=== PATIENT | female | born 1950 | race Caucasian/White ===

== ENCOUNTER 2019-07-03 11:16 | Emergency (ER) | payer SELFPAY ==
--- NOTE | 2019-07-03 11:30 | ED ---
Complex/Multi-Sys Presentation - HPI Summary HPI Summary: Pt. is a 69 y.o who presents to ER via EMS for complaints of dysuria and requesting medication refill. Pt. states she just arrived to [place] on a bus from [place]. Pt. states she is moving back to [place]. Pt. notes she has nowhere to stay in [place]. Pt. states she left her medications on the bus. Past hx of DM, obesity, HTN, and GERD. Sxs are mild in severity. No current modifying factors. - History Of Current Complaint Time Seen by Provider: 07/03/19 11:22 Hx Obtained From: Patient - Allergies/Home Medications Allergies/Adverse Reactions: Allergies Allergy/AdvReac Type Severity Reaction Status Date / Time apple Allergy Anaphylatic Verified 07/03/19 11:23 Shock aspirin Allergy Anaphylatic Verified 07/03/19 11:23 Shock soy Allergy Anaphylatic Verified 07/03/19 11:23 Shock erythromycin base AdvReac See Comment Verified 07/03/19 11:23 lactose AdvReac GI Upset Verified 07/03/19 11:23 Home Medications: Home Medications Carboxymethylcellulose Sodium [Lubricant Eye Drops] 0.5 % BOTH EYES QID PRN [History Confirmed 07/03/19] Cholecalciferol CAP/TAB(NF) [Vitamin D3 CAP/TAB (NF)] 2,000 unit PO BID [History Confirmed 07/03/19] Clotrimazole 1% TOPICAL (NF) [Lotrimin 1% TOPICAL (NF)] 1 applic TOPICAL BID [History Confirmed 07/03/19] Hydrochlorothiazide TAB* [Hydrodiuril TAB*] 25 mg PO DAILY 07/03/19 [History Confirmed 07/03/19] Methyl Salicylate/Menthol [Thera-Gesic] 1 applic TOPICAL BID 07/03/19 [History Confirmed 07/03/19] Montelukast Sodium TAB* [Singulair TAB*] 10 mg PO DAILY 07/03/19 [History Confirmed 07/03/19] Omeprazole CAP (NF) [Prilosec CAP* 20 MG] 40 mg PO DAILY 07/03/19 [History Confirmed 07/03/19] metFORMIN* [Glucophage 500 MG TAB *] 500 mg PO DAILY 07/03/19 [History Confirmed 07/03/19] PMH/Surg Hx/FS Hx/Imm Hx Previously Healthy: Yes - Family History Known Family History: Positive: Non-Contributory - Social History Occupation: Retired Lives: Alone Review of Systems - ROS Summary Review of Systems Summary: Carboxymethylcellulose Sodium [Lubricant Eye Drops] 0.5 % BOTH EYES QID PRN [History Confirmed 07/03/19] Cholecalciferol CAP/TAB(NF) [Vitamin D3 CAP/TAB (NF)] 2,000 unit PO BID [History Confirmed 07/03/19] Clotrimazole 1% TOPICAL (NF) [Lotrimin 1% TOPICAL (NF)] 1 applic TOPICAL BID [History Confirmed 07/03/19] Hydrochlorothiazide TAB* [Hydrodiuril TAB*] 25 mg PO DAILY 07/03/19 [History Confirmed 07/03/19] Hydrochlorothiazide TAB* [Hydrodiuril TAB*] 25 mg PO DAILY #14 tab 07/03/19 [Rx] Methyl Salicylate/Menthol [Thera-Gesic] 1 applic TOPICAL BID 07/03/19 [History Confirmed 07/03/19] Montelukast Sodium TAB* [Singulair 10 MG TAB*] 10 mg PO DAILY #14 tab 07/03/19 [ Rx] Montelukast Sodium TAB* [Singulair TAB*] 10 mg PO DAILY 07/03/19 [History Confirmed 07/03/19] Omeprazole 40 mg PO DAILY #14 07/03/19 [Rx] Omeprazole CAP (NF) [Prilosec CAP* 20 MG] 40 mg PO DAILY 07/03/19 [History Confirmed 07/03/19] metFORMIN* [Glucophage 500 MG TAB *] 500 mg PO DAILY 07/03/19 [History Confirmed 07/03/19] metFORMIN* [Glucophage 500 MG TAB *] 500 mg PO DAILY #14 tab 07/03/19 [Rx] Constitutional: Negative Negative: Fever Cardiovascular: Negative Respiratory: Negative Gastrointestinal: Negative Positive: dysuria Neurological/Mental Status: Negative All Other Systems Reviewed And Are Negative: Yes Physical Exam Triage Information Reviewed: Yes Vital Signs Reviewed: Yes Appearance: Positive: Well-Appearing - Pt. sitting up in bed in NAD. Skin: Positive: Warm, Dry Head/Face: Positive: Normal Head/Face Inspection Eyes: Positive: Normal, EOMI, JOANIE Neck: Positive: Supple Respiratory/Lung Sounds: Positive: Clear to Auscultation, Breath Sounds Present Cardiovascular: Positive: Normal, RRR Abdomen Description: Positive: Nontender, Soft Neurological: Positive: Normal, CN Intact II-III Psychiatric: Positive: Affect/Mood Appropriate Procedures - Sedation Patient Received Moderate/Deep Sedation with Procedure: No Diagnostics - Laboratory Result Diagrams: 07/03/19 13:20 07/03/19 13:20 Lab Statement: Any lab studies that have been ordered have been reviewed, and results considered in the medical decision making process. Complex Multi-Symp Course/Dx Course Of Treatment: Pt. presenting with dysuria and requestin med refill and a place to stay. [facility] able to obtain pt.'s medication list from [facility]. Labs unremarkable. U/A negative for infection. WIll given pt. 2 weeks of med refill. To schedule apt. with the [facility] for further rx and to establish a PCP. group home worker recommends homeless [facility]. Pt. dc. - Diagnoses Provider Diagnoses: Medication refill, Dysuria Discharge ED - Sign-Out/Discharge Documenting (check all that apply): Patient Departure - Discharge Plan Condition: Good Disposition: HOME Prescriptions: Hydrochlorothiazide TAB* [Hydrodiuril TAB*] 25 mg PO DAILY #14 tab metFORMIN* [Glucophage 500 MG TAB *] 500 mg PO DAILY #14 tab Montelukast Sodium TAB* [Singulair 10 MG TAB*] 10 mg PO DAILY #14 tab Omeprazole 40 mg PO DAILY #14 capsule. Patient Education Materials: Medicine Refill (ED) Referrals: [facility] [Outside] Additional Instructions: Please call the [facility] today to schedule an appointment as soon as possible for further medication refilled Return to ER if symptoms change or worsen - Billing Disposition and Condition Condition: GOOD Disposition: Home
[2019-07-03 12:22] LABS: Urine Appearance Cloudy; Urine Bilirubin Negative (Negative); Urine Blood Negative (Negative); Urine Color Amber; Urine Glucose Negative (Negative); Urine Ketones Negative (Negative); Urine Nitrite Negative (Negative); Urine Protein 1+(30 mg/dL) (Negative); Urine Specific Gravity 1.028 (1.010-1.030); Urine Urobilinogen Negative (Negative)
[2019-07-03 12:27] LABS: Urine Bacteria 1+ (Absent); Urine Red Blood Cell Absent (Absent); Urine Squamous Epithelial Cell Present (Absent); Urine White Blood Cell Trace(0-5/hpf) (Absent)
[2019-07-03 13:34] LABS: ABS Eosinophils 0.1 10^3/ul (0-0.6); ABS Lymphocytes 1.6 10^3/ul (1.0-4.8); ABS Monocytes 0.4 10^3/ul (0-0.8); ABS Neutrophils 3.2 10^3/ul (1.5-7.7); Eosinophil % 2.1 %; Hematocrit 42 % (35-47); Hemoglobin 14.5 g/dL (12.0-16.0); Lymphocyte % 29.6 %; Mean Corpuscular HGB Conc 35 g/dL (31-36); Mean Corpuscular Hemoglobin 34 pg (27-31); Mean Corpuscular Volume 98 fL (80-97); Mean Platelet Volume 8.5 fL (7.4-10.4); Nucleated Red Blood Cells % 0.1; Platelet Count 290 10^3/uL (150-450); Red Blood Count 4.27 10^6 /uL (3.70-4.87); Red Cell Distribution Width 14 % (10-15); White Blood Count 5.4 10^3/uL (3.5-10.8)
[2019-07-03 13:44] LABS: Albumin 3.7 g/dL (3.2-5.2); Calcium 8.9 mg/dL (8.6-10.3); Potassium 3.3 mmol/L (3.5-5.0); Total Bilirubin 0.6 mg/dL (0.2-1.0)
[2019-07-03 13:50] LABS: Albumin/Globulin Ratio 1.4 (1-3); BUN/Creatinine Ratio 13.3 (8-20); EGFR African American 68.1 (>60); EGFR Non-African American 56.3 (>60); Globulin 2.7 g/dL (2-4); Total Protein 6.4 g/dL (6.4-8.9)
[2019-07-03] MEDS ORDERED: Potassium Chlor TAB* 20 MEQ TAB.ER PO ONE (14:21)
[2019-07-03 15:25] VITALS: BP 139/91
== END 2019-07-03 15:25 | disposition home or self-care (01) ==
LOC: ED 11:16
DX: R30.0 Dysuria (principal); Z76.0 Encounter for issue of repeat prescription; Z88.6 Allergy status to analgesic agent; Z88.1 Allergy status to other antibiotic agents; Z91.011 Allergy to milk products; Z91.018 Allergy to other foods
CPT/HCPCS: 36415; 80053; 81003; 81015; 85025; 87086; 99283; A9270-GY

== ENCOUNTER 2019-07-06 18:11 | Emergency (ER) | payer OTHER ==
--- NOTE | 2019-07-06 18:28 | ED ---
Shortness of Breath - HPI Summary HPI Summary: Patient is a 69 y/o F w/ Hx of asthma, sleep apnea who presents to [facility] via EMS with complaints of SOB and cough. She reports that cough onset last evening and SOB tonight. EMS was called and administered a nebulizer treatment. Patient is currently 100% on RA. Patient states that she has also been experiencing nasal congestion, chills and notes that her feet feel numb and painful. She states that she has been travelling and recently came up to [place] from [place]. Patient claims that her CPAP machine and her medications were lost when travelling. Patient also claims Hx of potassium deficiency and diabetes. Patient smokes marijuana but denies cigarette usage. She notes azithromycin and ASA allergy. Home medications and allergies are reviewed. Home Medications Medication Instructions Recorded Confirmed Type Carboxymethylcellulose Sodium 0.5 % BOTH EYES QID PRN 07/03/19 07/03/19 History [Lubricant Eye Drops] Cholecalciferol CAP/TAB(NF) 2,000 unit PO BID 07/03/19 07/03/19 History [Vitamin D3 CAP/TAB (NF)] Clotrimazole 1% TOPICAL (NF) 1 applic TOPICAL BID 07/03/19 07/03/19 History [Lotrimin 1% TOPICAL (NF)] Hydrochlorothiazide TAB* 25 mg PO DAILY 07/03/19 07/03/19 History [Hydrodiuril TAB*] Methyl Salicylate/Menthol 1 applic TOPICAL BID 07/03/19 07/03/19 History [Thera-Gesic] Montelukast Sodium TAB* [Singulair 10 mg PO DAILY 07/03/19 07/03/19 History TAB*] Omeprazole CAP (NF) [Prilosec CAP* 40 mg PO DAILY 07/03/19 07/03/19 History 20 MG] metFORMIN* [Glucophage 500 MG TAB 500 mg PO DAILY 07/03/19 07/03/19 History *] - History of Current Complaint Chief Complaint: EDShortnessOfBreath Time Seen by Provider: 07/06/19 18:15 Hx Obtained From: Patient Onset/Duration: Lasting Hours, Still Present Aggravating Factors: Nothing Alleviating Factors: Nothing Associated Signs & Symptoms: Chills, Nasal Congestion - Allergy/Home Medications Allergies/Adverse Reactions: Allergies Allergy/AdvReac Type Severity Reaction Status Date / Time apple Allergy Anaphylatic Verified 07/03/19 11:23 Shock aspirin Allergy Anaphylatic Verified 07/03/19 11:23 Shock soy Allergy Anaphylatic Verified 07/03/19 11:23 Shock erythromycin base AdvReac See Comment Verified 07/03/19 11:23 lactose AdvReac GI Upset Verified 07/03/19 11:23 Home Medications: Home Medications Carboxymethylcellulose Sodium [Lubricant Eye Drops] 0.5 % BOTH EYES QID PRN [History Confirmed 07/06/19] Cholecalciferol CAP/TAB(NF) [Vitamin D3 CAP/TAB (NF)] 2,000 unit PO BID [History Confirmed 07/06/19] Clotrimazole 1% TOPICAL (NF) [Lotrimin 1% TOPICAL (NF)] 1 applic TOPICAL BID [History Confirmed 07/06/19] Hydrochlorothiazide TAB* [Hydrodiuril TAB*] 25 mg PO DAILY 07/03/19 [History Confirmed 07/06/19] Methyl Salicylate/Menthol [Thera-Gesic] 1 applic TOPICAL BID 07/03/19 [History Confirmed 07/06/19] Montelukast Sodium TAB* [Singulair TAB*] 10 mg PO DAILY 07/03/19 [History Confirmed 07/06/19] Omeprazole CAP (NF) [Prilosec CAP* 20 MG] 40 mg PO DAILY 07/03/19 [History Confirmed 07/06/19] metFORMIN* [Glucophage 500 MG TAB *] 500 mg PO DAILY 07/03/19 [History Confirmed 07/06/19] Benzonatate CAP* [Tessalon 100 MG CAP*] 100 mg PO TID #20 cap 07/06/19 [Rx] PMH/Surg Hx/FS Hx/Imm Hx Endocrine/Hematology History: Reports: Hx Diabetes Respiratory History: Reports: Hx Asthma, Hx Sleep Apnea Infectious Disease History: No Infectious Disease History: Denies: Traveled Outside the [place] in Last 30 Days - Family History Known Family History: Negative: Respiratory Disease - Social History Alcohol Use: Occasionally Substance Use Type: Reports: Marijuana Smoking Status (MU): Never Smoked Tobacco Review of Systems Positive: Chills Positive: Nasal Discharge Positive: Shortness Of Breath, Cough Musculoskeletal: Other - feet are painful and numb All Other Systems Reviewed And Are Negative: Yes Physical Exam - Summary Physical Exam Summary: Constitutional: Well-developed, Well-nourished, Alert. (-) Distressed Skin: Warm, Dry HENT: Normocephalic; Atraumatic; Nasal Congestion Noted Eyes: Conjunctiva normal Neck: Musculoskeletal ROM normal neck. (-) JVD, (-) Stridor, (-) Tracheal deviation Cardio: Rhythm regular, rate normal, Heart sounds normal; Intact distal pulses; Radial pulses are 2+ and symmetric. (-) Murmur Pulmonary/Chest wall: Effort normal. (-) Respiratory distress, (-) Wheezes, (-) Rales Abd: Soft, (-) tenderness, (-) Distension, (-) Guarding, (-) Rebound Musculoskeletal: (-) Edema Lymph: (-) Cervical adenopathy Neuro: Alert, Oriented x3 Psych: Mood and affect Normal Triage Information Reviewed: Yes Vital Signs On Initial Exam: Initial Vitals Temp Pulse Resp BP Pulse Ox 98.1 F 76 22 142/72 100 07/06/19 18:13 07/06/19 18:13 07/06/19 18:13 07/06/19 18:13 07/06/19 18:13 Vital Signs Reviewed: Yes Procedures - Sedation Patient Received Moderate/Deep Sedation with Procedure: No Diagnostics - Vital Signs Vital Signs Temp Pulse Resp BP Pulse Ox 07/06/19 18:13 98.1 F 76 22 142/72 100 - Laboratory Lab Statement: Any lab studies that have been ordered have been reviewed, and results considered in the medical decision making process. - Radiology CXR Radiology Interpretation Completed By: ED Physician Summary of Radiographic Findings: No acute process, pending official report. Course/Dx - Course Course Of Treatment: Patient is here 24 hours of nasal congestion and cough. Patient was given an albuterol treatment with EMS with no improvement in her symptoms. Patient thinks that she has a sinus infection. Patient had a chest x -ray which showed no pneumonia. Patient had a negative rapid influenza swab. Patient was overall well-appearing and does not need any further testing. Patient is discharged with Anamaria Whitaker and PCP referral - Diagnoses Provider Diagnoses: Cough Discharge ED - Sign-Out/Discharge Documenting (check all that apply): Patient Departure - discharge - Discharge Plan Condition: Stable Disposition: HOME Prescriptions: Benzonatate CAP* [Tessalon 100 MG CAP*] 100 mg PO TID #20 cap Patient Education Materials: Acute Cough (ED) Referrals: Aure Silva NP [Nurse Practitioner] - 3 Days Additional Instructions: TAKE YOUR MEDICATIONS PRESCRIBED. FOLLOW UP WITH YOUR PRIMARY CARE PHYSICIAN WITHIN THREE DAYS. PLEASE RETURN TO ED FOR CHEST PAIN, DIFFICULTY BREATHING, OR ANY OTHER CONCERNING SYMPTOMS. - Billing Disposition and Condition Condition: STABLE Disposition: Home - Attestation Statements Document Initiated by Jonathan: Yes Documenting Scribe: DAREN CURIEL Provider For Whom Jonathan is Documenting (Include Credential): MALAIKA CAPELLAN MD Scribe Attestation: DAREN Galdamez, scribed for MALAIKA CAPELLAN MD on 07/06/19 at 2324. Scribe Documentation Reviewed: Yes Provider Attestation: The documentation as recorded by the DAREN parra accurately reflects the service I personally performed and the decisions made by me, MALAIKA CAPELLAN MD Status of Scribe Document: Viewed
[2019-07-06 19:31] LABS: Influenza A Molecular Negative (Negative); Influenza B Molecular Negative (Negative)
[2019-07-06 20:56] VITALS: BP 144/90
== END 2019-07-06 20:45 | disposition home or self-care (01) ==
LOC: ED 18:11
DX: R05 Cough (principal); R06.02 Shortness of breath; R09.81 Nasal congestion; R68.83 Chills (without fever); R20.0 Anesthesia of skin; M79.672 Pain in left foot; M79.671 Pain in right foot; E11.9 Type 2 diabetes mellitus without complications; Z79.84 Long term (current) use of oral hypoglycemic drugs; Z88.6 Allergy status to analgesic agent; Z88.1 Allergy status to other antibiotic agents; Z91.011 Allergy to milk products; Z91.018 Allergy to other foods
CPT/HCPCS: 71046; 99283

== ENCOUNTER 2019-07-11 16:33 | Emergency (ER) | payer OTHER ==
[2019-07-11 18:49] LABS: Influenza A Molecular Negative (Negative); Influenza B Molecular Negative (Negative)
[2019-07-11] MEDS ORDERED: NS 0.9% 1000 ML** 1,000 ML IV ONE (20:52)
--- NOTE | 2019-07-11 20:52 | ED ---
Abdominal Pain/Female - HPI Summary HPI Summary: Patient complains of diffuse crampy intermittent abdominal pain 3 days with associated diarrhea, productive cough with yellow discharge and yellow nasal discharge 3 days. She states history of ulcerative colitis, DM, HTN, hypokalemia. Patient story is very variable, states she came from [place] recently on a bus, then states she came from [place], states she lost her medications in [place], then states she lost them in [place]. Patient states she has not been taking her medication for couple weeks. Patient was seen here on prior visit on 07/03 and 07/06. New prescriptions for Medications were sent to the pharmacy here in [place], however patient states meds were sent to the pharmacy which is far from where she is staying, and so she has not been able to fill prescriptions. Denies fever, sore throat, CP, SOB , change in urine, vaginal symptoms. Abdominal surgical history is cholecystectomy, total hysterectomy. - History of Current Complaint Chief Complaint: EDNauseaVomitDiarrh Stated Complaint: COUGH/CONGESTION PER EMS Time Seen by Provider: 07/11/19 20:08 Hx Obtained From: Patient Onset/Duration: Gradual Onset, Lasting Days Timing: Minutes Severity Initially: Mild Severity Currently: Mild Pain Intensity: 2 Pain Scale Used: 0-10 Numeric Location: Diffuse Radiates: No Character: Dull, Cramping Aggravating Factor(s): Nothing Alleviating Factor(s): Spontaneous Resolution Associated Signs and Symptoms: Positive: Diarrhea Allergies/Adverse Reactions: Allergies Allergy/AdvReac Type Severity Reaction Status Date / Time apple Allergy Anaphylatic Verified 07/11/19 20:16 Shock aspirin Allergy Anaphylatic Verified 07/11/19 20:16 Shock soy Allergy Anaphylatic Verified 07/11/19 20:16 Shock erythromycin base AdvReac See Comment Verified 07/11/19 20:16 lactose AdvReac GI Upset Verified 07/11/19 20:16 Home Medications: Home Medications Carboxymethylcellulose Sodium [Lubricant Eye Drops] 0.5 % BOTH EYES QID PRN [History Confirmed 07/11/19] Cholecalciferol CAP/TAB(NF) [Vitamin D3 CAP/TAB (NF)] 2,000 unit PO BID [History Confirmed 07/11/19] Clotrimazole 1% TOPICAL (NF) [Lotrimin 1% TOPICAL (NF)] 1 applic TOPICAL BID [History Confirmed 07/11/19] Hydrochlorothiazide TAB* [Hydrodiuril TAB*] 25 mg PO DAILY 07/03/19 [History Confirmed 07/11/19] Methyl Salicylate/Menthol [Thera-Gesic] 1 applic TOPICAL BID 07/03/19 [History Confirmed 07/11/19] Montelukast Sodium TAB* [Singulair TAB*] 10 mg PO DAILY 07/03/19 [History Confirmed 07/11/19] Omeprazole CAP (NF) [Prilosec CAP* 20 MG] 40 mg PO DAILY 07/03/19 [History Confirmed 07/11/19] metFORMIN* [Glucophage 500 MG TAB *] 500 mg PO DAILY 07/03/19 [History Confirmed 07/11/19] Benzonatate CAP* [Tessalon 100 MG CAP*] 100 mg PO TID #20 cap 07/06/19 [Rx Confirmed 07/11/19] Hydrochlorothiazide TAB* [Hydrodiuril TAB*] 25 mg PO DAILY 30 Days #30 tab 07/12 [Rx] Montelukast Sodium TAB* [Singulair 10 MG TAB*] 10 mg PO DAILY 30 Days #30 tab [Rx] Omeprazole 40 mg PO DAILY 30 Days #60 capsule. 07/12/19 [Rx] metFORMIN* [Glucophage 500 MG TAB *] 500 mg PO DAILY 30 Days #30 tab 07/12/19 [ Rx] PMH/Surg Hx/FS Hx/Imm Hx Endocrine/Hematology History: Reports: Hx Diabetes Cardiovascular History: Comment Only: Other Cardiovascular Problems/Disorders - VALVE SLIPPAGE AND RELATED CHAMBER ENLARGEMENT Respiratory History: Reports: Hx Asthma, Hx Sleep Apnea History: Denies: Hx Dialysis Sensory History: Denies: Hx Eye Prosthesis Opthamlomology History: Denies: Hx Legally Blind EENT History: Denies: Hx Deafness Infectious Disease History: No Infectious Disease History: Denies: Traveled Outside the US in Last 30 Days - Family History Known Family History: Positive: Non-Contributory Negative: Respiratory Disease - Social History Alcohol Use: Occasionally Substance Use Type: Reports: None Substance Use Comment - Amount & Last Used: on occasion. Hx Tobacco Use: Yes Smoking Status (MU): Never Smoked Tobacco Review of Systems Constitutional: Negative Eyes: Negative Positive: Nasal Discharge Cardiovascular: Negative Positive: Cough Positive: Abdominal Pain, Diarrhea Genitourinary: Negative Musculoskeletal: Negative Skin: Negative Neurological/Mental Status: Negative Psychological: Normal All Other Systems Reviewed And Are Negative: Yes Physical Exam - Summary Physical Exam Summary: Abdomen soft, mildly tender diffusely. Triage Information Reviewed: Yes Vital Signs On Initial Exam: Initial Vitals Temp Pulse Resp BP Pulse Ox 97.5 F 75 18 156/79 98 07/11/19 16:36 07/11/19 16:36 07/11/19 16:36 07/11/19 16:36 07/11/19 16:36 Vital Signs Reviewed: Yes Appearance: Positive: Well-Appearing Skin: Positive: Warm Head/Face: Positive: Normal Head/Face Inspection Eyes: Positive: Normal ENT: Positive: Normal ENT inspection Neck: Positive: Supple Respiratory/Lung Sounds: Positive: Clear to Auscultation Cardiovascular: Positive: Normal Abdomen Description: Positive: Other: Musculoskeletal: Positive: Normal Neurological: Positive: Normal Psychiatric: Positive: Normal AVPU Assessment: Alert - Mirna Coma Scale Best Eye Response: 4 - Spontaneous Best Motor Response: 6 - Obeys Commands Best Verbal Response: 5 - Oriented Coma Scale Total: 15 Procedures - Sedation Patient Received Moderate/Deep Sedation with Procedure: No Diagnostics - Vital Signs Vital Signs Temp Pulse Resp BP Pulse Ox 07/11/19 20:10 80 159/99 98 07/11/19 18:21 97.3 F 82 18 160/118 98 07/11/19 16:36 97.5 F 75 18 156/79 98 - Laboratory Lab Results: Lab Results 07/11/19 Range/Units Unknown Influenza A (Rapid) Negative (Negative) Influenza B (Rapid) Negative (Negative) Result Diagrams: 07/11/19 21:31 07/11/19 21:31 Lab Statement: Any lab studies that have been ordered have been reviewed, and results considered in the medical decision making process. Abdominal Pain Fem Course/Dx - Course Course Of Treatment: Patient complains of diffuse crampy intermittent abdominal pain 3 days with associated diarrhea, productive cough with yellow discharge and yellow nasal discharge 3 days. She states history of ulcerative colitis, DM, HTN, hypokalemia. Patient story is very variable, states she came from [place] recently on a bus, then states she came from [place], states she lost her medications in [place], then states she lost them in [place]. Patient states she has not been taking her medication for couple weeks. Patient was seen here on prior visit on 07/03 and 07/06. New prescriptions for Medications were sent to the pharmacy here in [place], however patient states meds were sent to the pharmacy which is far from where she is staying, and so she has not been able to fill prescriptions. Denies fever, sore throat, CP, SOB , change in urine, vaginal symptoms. Abdominal surgical history is cholecystectomy, total hysterectomy. Vital signs within normal limits. Labs unremarkable. CRP normal. CT abdomen and pelvis unremarkable. No active diarrhea here in the ED. Patient states she was unable to fill her prescriptions due to pharmacy being far from her motel. Prescriptions have been sent to the [facility] near her motel which she states she has been to for Maalox and aspirin. Has been advised to [facility] with [facility] to establish primary care. - Diagnoses Provider Diagnoses: Abdominal pain, Acute diarrhea, Cough Discharge ED - Sign-Out/Discharge Documenting (check all that apply): Patient Departure - Discharge Plan Condition: Stable Disposition: HOME Prescriptions: Hydrochlorothiazide TAB* [Hydrodiuril TAB*] 25 mg PO DAILY 30 Days #30 tab metFORMIN* [Glucophage 500 MG TAB *] 500 mg PO DAILY 30 Days #30 tab Montelukast Sodium TAB* [Singulair 10 MG TAB*] 10 mg PO DAILY 30 Days #30 tab Omeprazole 40 mg PO DAILY 30 Days #60 capsule. Patient Education Materials: Chronic Abdominal Pain (ED) Referrals: No Primary Care Phys,NOPCP [Primary Care Provider] - [facility] [Outside] Additional Instructions: Your prescription medications have been sent to the [facility] pharmacy on near your motel. Follow-up with primary care at [facility]. Return to the ED for any new or worsening symptoms. - Billing Disposition and Condition Condition: STABLE Disposition: Home
[2019-07-11 21:19] LABS: Urine Appearance Cloudy; Urine Bilirubin Negative (Negative); Urine Blood Negative (Negative); Urine Color Yellow; Urine Glucose Negative (Negative); Urine Ketones Trace (Negative); Urine Nitrite Negative (Negative); Urine Protein Negative (Negative); Urine Specific Gravity 1.025 (1.010-1.030); Urine Urobilinogen Negative (Negative)
[2019-07-11 21:45] LABS: ABS Basophils 0.1 10^3/ul (0-0.2); ABS Eosinophils 0.1 10^3/ul (0-0.6); ABS Lymphocytes 2.2 10^3/ul (1.0-4.8); ABS Monocytes 0.8 10^3/ul (0-0.8); ABS Neutrophils 5.1 10^3/ul (1.5-7.7); Eosinophil % 1.7 %; Hematocrit 44 % (35-47); Hemoglobin 15.6 g/dL (12.0-16.0); Mean Corpuscular HGB Conc 36 g/dL (31-36); Mean Corpuscular Hemoglobin 35 pg (27-31); Mean Corpuscular Volume 98 fL (80-97); Mean Platelet Volume 8.3 fL (7.4-10.4); Nucleated Red Blood Cells % 0.1; Platelet Count 329 10^3/uL (150-450); Red Blood Count 4.48 10^6 /uL (3.70-4.87); Red Cell Distribution Width 14 % (10-15); White Blood Count 8.3 10^3/uL (3.5-10.8)
[2019-07-11 22:02] LABS: Albumin 3.7 g/dL (3.2-5.2); Albumin/Globulin Ratio 1.3 (1-3); BUN/Creatinine Ratio 10.6 (8-20); C Reactive Protein 7.84 mg/L (<8.01); Calcium 9.2 mg/dL (8.6-10.3); EGFR African American 63.6 (>60); EGFR Non-African American 52.5 (>60); Globulin 2.8 g/dL (2-4); Potassium 3.4 mmol/L (3.5-5.0); Total Bilirubin 0.5 mg/dL (0.2-1.0); Total Protein 6.5 g/dL (6.4-8.9)
[2019-07-11] MEDS ORDERED: Iodixanol* (CONTRAST) 320 MG/ML 100 ML SDV IV ONE (23:18)
[2019-07-12 01:52] VITALS: BP 169/73
== END 2019-07-12 01:49 | disposition home or self-care (01) ==
LOC: ED 16:33
DX: R10.9 Unspecified abdominal pain (principal); R19.7 Diarrhea, unspecified; R05 Cough; K76.0 Fatty (change of) liver, not elsewhere classified; D73.9 Disease of spleen, unspecified; E11.9 Type 2 diabetes mellitus without complications; I10 Essential (primary) hypertension; J45.909 Unspecified asthma, uncomplicated; Z90.49 Acquired absence of other specified parts of digestive tract; Z90.710 Acquired absence of both cervix and uterus; Z79.84 Long term (current) use of oral hypoglycemic drugs; Z79.899 Other long term (current) drug therapy; Z88.1 Allergy status to other antibiotic agents; Z88.8 Allergy status to other drugs, medicaments and biological substances
CPT/HCPCS: 36415; 71046; 74177; 80053; 81003; 83605; 83690; 85025; 86140; 96360; 96361; 99283; Q9967